=== PATIENT | female | born 1990 | race Caucasian/White ===

== ENCOUNTER 2021-04-25 22:15 | Emergency (ER) | payer BC ==
[~2021-04-25] VITALS: Ht 160 cm; Wt 76.7 kg
[2021-04-25 22:15] VITALS: BP 124/72
[2021-04-25] MEDS ORDERED: LIDOCAINE /MPF 1% VIAL 5 ML VIAL ONE (22:36)
--- NOTE | 2021-04-25 23:25 | NUR ---
DR. CLEMONS AT BEDSIDE FOR SUTURING.
--- NOTE | 2021-04-25 23:54 | NUR ---
PATIENT'S LEFT HAND IS CLEANED AND ADDED WITH DRESSING.
--- NOTE | 2021-04-25 23:55 | NUR ---
Patient discharged to home in stable condition. Written and verbal after care instructions given. Patient verbalizes understanding of instruction.
== END 2021-04-25 23:56 | disposition home or self-care (01) ==
LOC: ER 22:21
DX: S61.012A Laceration without foreign body of left thumb without damage to nail, initial encounter (principal); W26.8XXA Contact with other sharp object(s), not elsewhere classified, initial encounter; Y93.89 Activity, other specified; Y92.89 Other specified places as the place of occurrence of the external cause; Y99.8 Other external cause status
CPT/HCPCS: 12001; 99282; A6403; J3490

== ENCOUNTER 2021-05-07 13:06 | Emergency (ER) | payer BC ==
[~2021-05-07] VITALS: Ht 160 cm; Wt 76.2 kg
[2021-05-07 13:16] VITALS: BP 122/75
--- NOTE | 2021-05-07 13:37 | NUR ---
[facility] REMOVED. DISCHARGED IN STABLE CONDITION.
== END 2021-05-07 13:38 | disposition home or self-care (01) ==
LOC: ER 13:06
DX: S61.012D Laceration without foreign body of left thumb without damage to nail, subsequent encounter (principal); X58.XXXD Exposure to other specified factors, subsequent encounter